=== PATIENT | female | born 1950 | race Caucasian/White ===

== ENCOUNTER 2018-04-23 22:18 | Inpatient (IN) ==
[2018-04-24] MEDS ORDERED: Ketorolac 30 MG/ML VIAL IVP PRN ×2 (00:21→12:46)
[2018-04-24] MEDS ORDERED: OXYCODONE Oral CONC 10 MG/0.5 ML ORAL.SYG SL PRN ×3 (00:21→12:46)
[2018-04-24] MEDS ORDERED: Naloxone 0.4 MG/ML INJ IVP PRN ×2 (00:21→12:46)
--- NOTE | 2018-04-24 00:25 | Internal Med History&Physical ---
Date of Encounter: 04/24/18 Time of Encounter: 00:25 Internal Medicine - H&P: HPI Chief complaint: Abdominal Pain History of present illness: Ms. Gardner is a 67 year old female medical history of diabetes, hypertension, history of cervical cancer status post hysterectomy and hyperlipidemia who initially presented to [facility] to abdominal pain. She has been having right lower quadrant pain for the past 2 days. Pain is described as sharp, 7 out of 10 in intensity and nonradiating. Symptoms gotten progressively worse during that timeframe associated with fever and chills. Patient has noted increased urinary frequency and urine which appears "puslike". Symptoms appear to improve one day prior to current presentation but the pain returned greater intensity today. Patient denies any flank pain, hematuria, nausea, vomiting, diarrhea, chest pain or shortness of breath. Denies any previous history of kidney stones. At [facility] patient was found to be mildly tachycardic with a heart rate of 105, normotensive and a temperature of 102.5. Laboratory findings notable for a leukocytosis of 12.8 and a lactic acid of 1.9. UA was unremarkable. A CT scan of the abdomen showed a 2-5 mm calculi in the right ureter causing moderate hydronephrosis. Dr. Maya with urology was consulted who will place patient on the surgical docket for the following day. Past Med Surg Social Fam HX - Family History Father Living Status: Hx Family Neurologic Disorders: Yes Mother Living Status: Hx Family Cancer: Yes Internal Medicine - H&P: Meds Aspirin [Adult Aspirin] 81 mg DAILY 04/24/18 [History] Bisoprolol/HCTZ 03/05.25 [Ziac ] 1 each PO DAILY 04/24/18 [History] Fluticasone Propionate Nasal [Flonase] 1 spray PRN 04/24/18 [History] Krill/[place]-3/Dha/Epa/Lipids [[place]-3 Krill Oil 500 mg Sfgl] DAILY 04/24/18 [History] Losartan [Cozaar] 100 mg PO DAILY 04/24/18 [History] Mv-Mn/Folic Acid/Vit [id number] [Alive Once Daily Women 50 Plus] 1 DAILY 04/24/18 [History] Pantoprazole Sodium 40 mg PO DAILY 04/24/18 [History] Pravastatin Sodium [Pravachol] 80 mg PO DAILY 04/24/18 [History] cloNIDine HCl [CloNIDine HCl] 0.3 mg PO BID 04/24/18 [History] metFORMIN [Glucophage] 850 mg PO DAILY 04/24/18 [History] Allergy/AdvReac Type Severity Reaction Status Date / Time No Known Allergies Allergy Verified 04/24/18 00:16 All Systems PM: A 10-system review of systems was performed and is negative for pertinent findings except as documented above in the HPI. - Constitutional Constitutional: no chills, no fever(s), no night sweats - EENT Eyes: no change in vision, no discharge, no pain, no photophobia Ears: no ear discharge, no ear pain, no tinnitus Nose, mouth and throat: no dysphagia, no nasal discharge, no neck pain, no sore throat - Cardiovascular Cardiovascular ROS IM: no chest pain, no diaphoresis, no dyspnea, no lightheadedness, no palpitations, no syncope - Respiratory Respiratory: no cough, no dyspnea, no wheezing, no excessive phlegm production - Gastrointestinal Gastrointestinal: no abdominal pain, no diarrhea, no hematemesis, no hematochezia, no melena, no nausea, no vomiting - Genitourinary Genitourinary: no change in urinary stream, no dysuria, no flank pain, no hematuria - Musculoskeletal Musculoskeletal ROS IM: no numbness, no tingling - Integumentary Integumentary IM: no rash, no unusual bruising - Neurological Neurological ROS: no confusion, no convulsions, no focal weakness, no numbness, no tingling, no tremor(s) - Hematologic/Lymphatic Hematologic/Lymphatic: no easy bruising - Constitutional Vitals: Temp Pulse Resp BP Pulse Ox 97.4 F L 90 17 124/79 96 04/24/18 00:11 04/24/18 00:11 04/24/18 00:11 04/24/18 00:11 04/24/18 00:11 Exam: General: Alert and oriented 3 lying in bed in no acute distress Skin:Normal color, no rash, no lesions. HEENT:EOM, pupils equal, round and reactive. Cardiovascular:Normal S1 & S2, no rubs, murmurs or gallops. No JVD. Pulse regular. Lungs:Normal breath sounds, no wheezes or crackles. Abdomen:Soft, non-tender, no rigidity. No CVA tenderness Extremities:No deformity, no edema or tenderness, no joint swelling or clubbing. Neurological:Normal cognition and motor skills. Pulses:Carotid and radial pulses normal +2. Rest of the physical exam is non contributory Internal Med - H&P Results - Labs CBC & Chem 7: 04/24/18 00:39 04/24/18 00:39 - Assessment and plan (1) Nephrolithiasis Current Visit: Yes Status: Acute Assessment and plan: Nephrolithiasis based on CT of the abdomen and pelvis which shows 2-5 mm calculi in the right ureter causing moderate hydronephrosis. Urology on board and plan for intervention tomorrow. -Continue with IV fluids -Pain control -We will give 1 dose of tamsulosin -Keep patient nothing by mouth -Urology consult (2) Sepsis Current Visit: Yes Status: Acute Assessment and plan: Patient met 3 out of 4 SIRS criteria with fever, elevated white blood cell count and tachycardia, urinary tract as her source of infection during initial assessment prior to transfer to [place]. Patient received IV ceftriaxone. Patient found to be afebrile and hemodynamically stable after arrival. Laboratory workup performed here shows normalization of patient's leukocytosis -We will continue antibiotics -Follow-up blood cultures. -Continue IV fluids. Qualifiers: Qualified Code(s): A41.9 - Sepsis, unspecified organism (3) Diabetes Current Visit: Yes Status: Acute Assessment and plan: Blood glucose checks every 6 with sliding scale insulin. Qualifiers: Diabetes mellitus type: type 2 Diabetes mellitus rat exterminator insulin use: without rat exterminator use Diabetes mellitus complication status: with unspecified complications Qualified Code(s): E11.8 - Type 2 diabetes mellitus with unspecified complications (4) Hypertension Current Visit: Yes Status: Acute Assessment and plan: Blood pressure stable. Resume home antihypertensives. Qualifiers: Hypertension type: unspecified Qualified Code(s): I10 - Essential (primary) hypertension (5) DVT prophylaxis Current Visit: Yes Status: Acute Assessment and plan: Subcutaneous heparin. - Time Spent With Patient Total time spent is greater than 50% in coordination of care (as documented) at patient's floor/unit and/or counseling patient:
[2018-04-24] MEDS: D5% in 0.45% NACL 1,000 ML IVC SCH ×2 (00:29→08:07)
[2018-04-24] MEDS ORDERED: *HR* Dextrose 50 % in Water (Syg) 50 ML SYRINGE IVP PRN ×2 (00:45→12:46)
[2018-04-24] MEDS ORDERED: Dextrose Gel 15 GM/37.5 ML TUBE PO PRN ×4 (00:45→12:46)
[2018-04-24] MEDS ORDERED: D5% in Water 1,000 ML IVC PRN ×2 (00:45→12:46)
[2018-04-24 00:51] LABS: Basophils % 0.3 %; Eosinophils % 0.1 %; Hematocrit 36.6 % (35.3-44.9); Hemoglobin 12.4 g/dL (11.5-15.4); Immature Granulocytes % 0.6 % (0-4); Lymphocytes # 1.3 K/mcL (0.6-4.6); Mean Corpuscular HGB Conc 33.9 g/dL (31.6-35.5); Mean Corpuscular Hemoglobin 30.4 pg (28.0-33.3); Mean Corpuscular Volume 89.7 fL (83.0-100.0); Mean Platelet Volume 10.7 fL (9.4-12.4); Monocytes % 9.7 %; Neutrophils # 8.3 K/mcL (1.6-8.9); Platelet Count 162 K/mcL (140-400); Red Blood Count 4.08 M/mcL (3.82-4.97); Red Cell Distribution Width 12.5 % (11.5-14.5); Segmented Neutrophils % 77.3 %
[2018-04-24 01:10] LABS: INR 1.2; Prothrombin Time 13.2 Seconds (9.4-12.1)
[2018-04-24 01:11] LABS: Alanine Aminotransferase 28 Units/L (7-52); Albumin 3.7 g/dL (3.5-5.7); Albumin/Globulin Ratio 1.4 (1.1-2.2); Alkaline Phosphatase 120 Units/L (34-104); Aspartate Amino Transferase 20 Units/L (13-39); BUN/Creatinine Ratio 21 (6-26); Bilirubin,Total 0.7 mg/dL (0.3-1.0); Blood Urea Nitrogen 13 mg/dL (8-23); Calcium 8.5 mg/dL (8.6-10.3); Carbon Dioxide 23 mEq/L (23-29); Chloride 107 mEq/L (98-107); Globulin 2.6 g/dL (2.4-3.5); Glucose 211 mg/dL (70-105); Osmolality,Calculated 294 (280-300); Potassium 3.4 mEq/L (3.5-5.1); Sodium 139 mEq/L (136-145); Total Protein 6.3 g/dL (6.4-8.9); eGFR For Non-African Americans > 60 (> 60)
[2018-04-24] MEDS ORDERED: Insulin LISPRO 300 UNITS/3 ML VIAL SQ SCH ×3 (06:00→18:00)
[2018-04-24] MEDS ORDERED: Potassium Chloride 40 MEQ, Lidocaine 1% 2 ML in D5% in Water 500 ML IVPB ONE (07:31)
--- NOTE | 2018-04-24 07:44 | Urology - Consult Note ---
Date of Encounter: 04/24/18 Time of Encounter: 07:42 - Assessment and Plan (1) Nephrolithiasis Current Visit: Yes Status: Acute Assessment and plan: 67-year-old woman seen in consultation for a right proximal ureteral stone with hydronephrosis and urinary tract infection with sepsis. She has been admitted. She has been afebrile overnight. She is hemodynamically stable. I recommend proceeding with a cystoscopy and right ureteral stent placement. I informed her the risks of the procedure which include but are not limited to bleeding, infection, injury to structures, need for further procedures, stent irritation, and the risk of anesthesia. She is willing to proceed. (2) Sepsis Current Visit: Yes Status: Acute Assessment and plan: Appreciate hospitalist support. Continue IV antibiotic. Await results of cultures. Qualifiers: Qualified Code(s): A41.9 - Sepsis, unspecified organism Urology CN:HPI Consult date: 04/24/18 Reason for consult Urology: Other (Right ureteral stone, uti) History of present illness: 67-year-old woman presented with right flank pain for 3 days. The pain became more severe yesterday. She reports developing a fever. She went to an outside emergency department. The pain was sharp. It radiated to the groin. She described the pain as being intense. At the outside emergency department a CT scan showed evidence of right hydronephrosis secondary to 2 small right proximal ureteral stones. She was given IV antibiotic and transferred to [facility]. Today she feels well. Her pain is improved. There are no fevers overnight. Past Med Surg Social Fam HX - Past Medical History Medical history: cancer, diabetes, hyperlipidemia, hypertension Additional medical history: Hx of ovarian cancer- removed Psychiatric history: no psych history - Past Surgical History Surgical History: hysterectomy - Social History Smoking Status: Never smoker Smokeless Tobacco Status: No Alcohol use: none Drug use: none - Family History Father Living Status: Hx Family Neurologic Disorders: Yes Mother Living Status: Hx Family Cancer: Yes Medications and Allergies Aspirin [Adult Aspirin] 81 mg DAILY 04/24/18 [History] Bisoprolol/HCTZ 03/05.25 [Ziac 03/05.25] 1 each PO DAILY 04/24/18 [History] Fluticasone Propionate Nasal [Flonase] 1 spray PRN 04/24/18 [History] Krill/[place]-3/Dha/Epa/Lipids [[place]-3 Krill Oil 500 mg Sfgl] DAILY 04/24/18 [History] Losartan [Cozaar] 100 mg PO DAILY 04/24/18 [History] Mv-Mn/Folic Acid/Vit [id number] [Alive Once Daily Women 50 Plus] 1 DAILY 04/24/18 [History] Pantoprazole Sodium 40 mg PO DAILY 04/24/18 [History] Pravastatin Sodium [Pravachol] 80 mg PO DAILY 04/24/18 [History] cloNIDine HCl [CloNIDine HCl] 0.3 mg PO BID 04/24/18 [History] metFORMIN [Glucophage] 850 mg PO DAILY 04/24/18 [History] Allergy/AdvReac Type Severity Reaction Status Date / Time No Known Allergies Allergy Verified 04/24/18 00:16 Review of Systems - Constitutional fever(s), no chills - EENT Nose, mouth and throat: no dizziness - Cardiovascular no chest pain - Respiratory no dyspnea - Gastrointestinal nausea, no vomiting - Genitourinary Genitourinary: flank pain, no hematuria - Musculoskeletal no back pain - Integumentary no erythema, no rash - Neurological no weakness - Psychiatric no suicidal ideation - Hematologic/Lymphatic no easy bleeding - Allergic/Immunologic no wheezing Exam Initial Vital Signs Temp Pulse Resp BP Pulse Ox 97.4 F L 90 17 124/79 96 04/24/18 00:11 04/24/18 00:11 04/24/18 00:11 04/24/18 00:11 04/24/18 00:11 - General physical appearance Present: well developed, well nourished, no distress - Eyes Absent: icteric - ENT Present: normal nares - Neck Present: trachea midline - Respiratory Present: normal respiratory effort - Cardiovascular Cardiovascular exam IM: RRR - Abdomen Abdomen: Present: soft - Integumentary Present: no rash - Neurologic Present: normal coordination - Musculoskeletal Present: other (Grossly normal) Urology Results - Labs 04/24/18 00:39 04/24/18 00:39 Abnormal lab results PT 13.2 Seconds (9.4-12.1) H 04/24/18 00:39 Potassium 3.4 mEq/L (3.5-5.1) L 04/24/18 00:39 Glucose 211 mg/dL (70-105) H 04/24/18 00:39 Calcium 8.5 mg/dL (8.6-10.3) L 04/24/18 00:39 Alkaline Phosphatase 120 Units/L (34-104) H 04/24/18 00:39 Serum Total Protein 6.3 g/dL (6.4-8.9) L 04/24/18 00:39 Diabetes panel 04/24/18 Range/Units 00:39 Sodium 139 (136-145) mEq/L Potassium 3.4 L (3.5-5.1) mEq/L Chloride 107 (98-107) mEq/L Carbon Dioxide 23 (23-29) mEq/L BUN 13 (8-23) mg/dL Creatinine 0.62 (0.60-1.20) mg/dL Glucose 211 H (70-105) mg/dL Calcium 8.5 L (8.6-10.3) mg/dL AST 20 (13-39) Units/L ALT 28 (7-52) Units/L Alkaline Phosphatase 120 H (34-104) Units/L Albumin 3.7 (3.5-5.7) g/dL Calcium panel 04/24/18 Range/Units 00:39 Calcium 8.5 L (8.6-10.3) mg/dL Albumin 3.7 (3.5-5.7) g/dL Pituitary panel 04/24/18 Range/Units 00:39 Sodium 139 (136-145) mEq/L Potassium 3.4 L (3.5-5.1) mEq/L Chloride 107 (98-107) mEq/L Carbon Dioxide 23 (23-29) mEq/L BUN 13 (8-23) mg/dL Creatinine 0.62 (0.60-1.20) mg/dL Glucose 211 H (70-105) mg/dL Calcium 8.5 L (8.6-10.3) mg/dL Adrenal panel 04/24/18 Range/Units 00:39 Sodium 139 (136-145) mEq/L Potassium 3.4 L (3.5-5.1) mEq/L Chloride 107 (98-107) mEq/L Carbon Dioxide 23 (23-29) mEq/L BUN 13 (8-23) mg/dL Creatinine 0.62 (0.60-1.20) mg/dL Glucose 211 H (70-105) mg/dL Calcium 8.5 L (8.6-10.3) mg/dL Total Bilirubin 0.7 (0.3-1.0) mg/dL AST 20 (13-39) Units/L ALT 28 (7-52) Units/L Alkaline Phosphatase 120 H (34-104) Units/L Albumin 3.7 (3.5-5.7) g/dL All other labs normal. - Imaging CT scan - abdomen: report reviewed, image reviewed CT scan - pelvis: report reviewed, image reviewed
[2018-04-24] MEDS: Bisoprolol/HCTZ 10/6.25 TABLET PO SCH ×2 (08:00→09:02)
[2018-04-24] MEDS ORDERED: *HR* Heparin 5,000 UNIT/ML VIAL SQ SCH (08:00)
[2018-04-24] MEDS ORDERED: Bisoprolol/HCTZ 10/6.25 TABLET PO SCH (09:00)
[2018-04-24] MEDS ORDERED: cefTRIAXone 1,000 MG in Water for inj. (sterile) 20 ML 10 ML IVPB SCH (09:00)
--- NOTE | 2018-04-24 09:03 | Anesthesia Evaluation PreOp ---
Date of Encounter: 04/24/18 Time of Encounter: 11:09 - Past History Planned Operation: cystoscopy, right ureteroscopy with stent insertion Cardiac History: HTN, Hyperlipidemia Pulmonary History: Denies Any Significant HX ADVERTISING WRITER History: Denies Any Significant HX Other Medical History: Renal (right ureteral stone with right-sided hydronephrosis), Diabetes Type II (oral medications only), GERD, Other (hx cervical cancer s/p hysterectomy; acute urosepsis) Anesthesia History: No Prior Anesthetic Complications, Past Anesthesia (hysterectomy, surgery for varicose veins) Alcohol Use: none Drug use: none Medications and Allergies Aspirin [Adult Aspirin] 81 mg DAILY 04/24/18 [History] Bisoprolol/HCTZ 03/05.25 [Ziac ] 1 each PO DAILY 04/24/18 [History] Fluticasone Propionate Nasal [Flonase] 1 spray PRN 04/24/18 [History] Krill/[place]-3/Dha/Epa/Lipids [[place]-3 Krill Oil 500 mg Sfgl] DAILY 04/24/18 [History] Losartan [Cozaar] 100 mg PO DAILY 04/24/18 [History] Mv-Mn/Folic Acid/Vit [id number] [Alive Once Daily Women 50 Plus] 1 DAILY 04/24/18 [History] Pantoprazole Sodium 40 mg PO DAILY 04/24/18 [History] Pravastatin Sodium [Pravachol] 80 mg PO DAILY 04/24/18 [History] cloNIDine HCl [CloNIDine HCl] 0.3 mg PO BID 04/24/18 [History] metFORMIN [Glucophage] 850 mg PO DAILY 04/24/18 [History] Allergy/AdvReac Type Severity Reaction Status Date / Time No Known Allergies Allergy Verified 04/24/18 00:16 - Meds/Allergy Pre-op Review Medications Reviewed: Yes Allergies Reviewed: Yes Beta Blockers on Current Med List: Yes (bisoprolol) If Beta Blockers taken, Date/Time (Last Dose taken): 04-24-18 bisprolol 8 am Anesthesia Results - Labs 04/24/18 00:39 04/24/18 00:39 Anesthesia Exam Last Vital Signs Temp 98.9 F 04/24/18 05:22 Pulse 94 04/24/18 05:22 Resp 15 04/24/18 05:22 BP 135/85 11/25/18 05:22 Pulse Ox 94 04/24/18 05:22 Weight: 101 kg - HEENT Pupil (Motor): Pupils equal, EOMI Mallampati: III Teeth: Normal Oral Opening: Greater than 3 - ADVERTISING WRITER LOC: Oriented ADVERTISING WRITER Motor: Normal RUE, Normal LUE, Normal RLE, Normal LLE, Normal Face - Cardiac Rhythm: Regular Murmur: None - Pulmonary Breath Sounds: bilateral Clear Respiratory Effort: Symmetrical Anesthesia Assess/Plan ASA Score: 3 Level of consciousness: Cooperative Anesthetic Plan: General Monitoring Plan: Standard Monitors Recovery Plan: PACU
--- NOTE | 2018-04-24 09:19 | Internal Med Progress Note ---
<Cam Tracey S - Last Filed: 04/24/18 11:21> Hospitalist Progress Note - Encounter Date of Encounter: 04/24/18 Time of Encounter: 09:14 - Subjective Interval History: Ms Gardner is a 67yo female with PMH HDL, HTN, T2DM, hx of cervical cancer who is a [facility] transfer that presented early this morning with the cc of abdominal pa in. She states that she has had it since mostly in the right side with radiation to her back. It was a sharp, achy pain that was a 8/10 at the worst. She states bending forward made it worse and had a hard time getting comfortable. She had some fever and chills assoc with the pain. Her urine was pussy and had increase in frequency of urination. She denies any episodes of emesis but was somewhat nauseated. Denies this ever happening to her before. The pt was evaluated at [facility] and found to have a HR 105, t of 102.5, WBC 12.8 and lactic acid 1.9, UA negative. CT abdomen and pelvis showed a calculi in the right ureter causing hydronephrosis. Spoke with pt at bedside this morning. She states her pain is better with pain meds. She states she is aware she is going for stenting this morning as per urology. Denies any acute complaint or concern. No active chest pain, SOB. - Exam Vitals: Temp Pulse Resp BP Pulse Ox 98.9 F 94 15 135/85 94 04/24/18 05:22 04/24/18 05:22 04/24/18 05:22 04/24/18 05:22 04/24/18 05:22 Exam: General: Alert and oriented 3 lying in bed in no acute distress Skin: Normal color, no rash, no lesions. Intact HEENT: normocephalic atraumatic, moist mucus membranes Cardiovascular:Normal S1 & S2, no rubs, murmurs or gallops. No JVD. Pulse regular. Lungs: Normal breath sounds, no wheezes or crackles. Abdomen:Soft, non-tender, no rigidity. No CVA tenderness, no rebound or guarding, obese Extremities: No deformity, no edema or tenderness, no joint swelling or clubbing. Neurological:No FND, CN2-12 grossly intact Psych : appropriate mood and affect - Assessment and Plan (1) Nephrolithiasis Current Visit: Yes Status: Acute Assessment and Plan: Three day hx of abd pain, RLQ/side, radiation to the back - no prior hx of kidney stone CT abdomen and pelvis at [facility] - 2-5mm calculi in the right ureter causing moderate hydronephrosis Pt met SIRS criteria for fever, WBC count and tacycardia at [facility] - since coming to [facility], pt has been afebrile and hemodynamically stable HR 94, BP stable, RR 15, WBC count normal Plan: - pt to go to OR with Dr. Maya this morning - currently NPO - pain control - tamsulosin given overnight - 150cc/hr D5 in 1/2 normal saline - ceftriaxone day 1 - blood cx pending, urine cx pending - dispo: cultures pending, remain afebrile (2) Obesity Current Visit: Yes Status: Acute Assessment and Plan: BMI 36.8 - lose weight (3) Allergic rhinitis Current Visit: Yes Status: Chronic Assessment and Plan: on flonase (4) Hyperlipidemia Current Visit: No Status: Chronic Assessment and Plan: on pravastatin - po meds held (5) GERD (gastroesophageal reflux disease) Current Visit: No Status: Chronic Assessment and Plan: on pantoprazole (6) Sepsis Current Visit: Yes Status: Resolved Assessment and Plan: See plan as per above (7) Diabetes Current Visit: No Status: Chronic Assessment and Plan: Glucose 211 - low dose sliding scale (8) Hypertension Current Visit: No Status: Chronic Assessment and Plan: On Cozaar - PO meds held - bp 135/85 (9) DVT prophylaxis Current Visit: Yes Status: Acute Assessment and Plan: sq heparin (10) Hypokalemia Current Visit: Yes Status: Acute Assessment and Plan: Potassium 3.4 - replaced - montior bmp - likely due to poor PO intake - Time Spent with Patient Total time spent is greater than 50% in coordination of care (as documented) at patient's floor/unit and/or counseling patient: Internal Medicine: Result - Labs CBC & Chem 7: 04/24/18 00:39 04/24/18 00:39 Labs: Short CBC 04/24/18 Range/Units 00:39 WBC 10.7 (4.3-11.1) K/mcL Hgb 12.4 (11.5-15.4) g/dL Hct 36.6 (35.3-44.9) % Plt Count 162 (140-400) K/mcL Neutrophils # 8.3 (1.6-8.9) K/mcL BMP 04/24/18 00:39 Sodium 139 Potassium 3.4 L Chloride 107 Carbon Dioxide 23 BUN 13 Creatinine 0.62 Glucose 211 H Calcium 8.5 L Liver Function 04/24/18 Range/Units 00:39 Total Bilirubin 0.7 (0.3-1.0) mg/dL AST 20 (13-39) Units/L ALT 28 (7-52) Units/L Alkaline Phosphatase 120 H (34-104) Units/L Albumin 3.7 (3.5-5.7) g/dL - ABG Interpretation ABG results: PT/INR, D-dimer PT 13.2 Seconds (9.4-12.1) H 04/24/18 00:39 Consult Discharge Plan - Plan Referrals: Bebo Aquino DO [Primary Care Provider] - <Laureano Whelan - Last Filed: 04/24/18 16:59> Hospitalist Progress Note - Encounter Date of Encounter: 04/24/18 - Exam Vitals: Temp Pulse Resp BP Pulse Ox 102.3 F H 89 20 127/69 93 04/24/18 12:28 04/24/18 12:28 04/24/18 12:28 04/24/18 12:28 04/24/18 12:28 - Assessment and Plan (1) Nephrolithiasis Current Visit: Yes Status: Acute (2) Sepsis Current Visit: Yes Status: Resolved (3) Diabetes Current Visit: No Status: Chronic (4) Hypertension Current Visit: No Status: Chronic (5) DVT prophylaxis Current Visit: Yes Status: Acute - Time Spent with Patient Total time spent is greater than 50% in coordination of care (as documented) at patient's floor/unit and/or counseling patient: Internal Medicine: Result - Labs CBC & Chem 7: 04/24/18 00:39 04/24/18 00:39 Labs: Short CBC 04/24/18 Range/Units 00:39 WBC 10.7 (4.3-11.1) K/mcL Hgb 12.4 (11.5-15.4) g/dL Hct 36.6 (35.3-44.9) % Plt Count 162 (140-400) K/mcL Neutrophils # 8.3 (1.6-8.9) K/mcL BMP 04/24/18 00:39 Sodium 139 Potassium 3.4 L Chloride 107 Carbon Dioxide 23 BUN 13 Creatinine 0.62 Glucose 211 H Calcium 8.5 L Liver Function 04/24/18 Range/Units 00:39 Total Bilirubin 0.7 (0.3-1.0) mg/dL AST 20 (13-39) Units/L ALT 28 (7-52) Units/L Alkaline Phosphatase 120 H (34-104) Units/L Albumin 3.7 (3.5-5.7) g/dL - ABG Interpretation ABG results: PT/INR, D-dimer PT 13.2 Seconds (9.4-12.1) H 04/24/18 00:39 - Impressions Impressions Fluoroscopy 04/24/18 00:00 IMPRESSION: Digital intra procedural images show inguinal a right ureteral stent in place. See procedure note for further details. D/ / Aishwarya Bermudez Cha, MD / Aishwarya Bermudez Cha, MD Interpreting Provider: Aishwarya Bermudez Cha, MD - Attending Attestation I have examined this patient and my medical decision-making was reviewed with the Resident Physician. I agree with the documented findings, disposition and treatment plan as described except to the extent set forth below. <Cam Tracey S - Last Filed: 04/24/18 11:21> (2) Obesity Qualifiers: Obesity type: due to excess calories Obesity classification: adult class 2 (BMI 35 - 39.9) Serious obesity comorbidity presence: unspecified whether serious comorbidity present Body mass index: BMI 36.0-36.9 Qualified Code(s): E66.09 - Other obesity due to excess calories; Z68.36 - Body mass index (BMI) 36.0-36.9, adult (3) Allergic rhinitis Qualifiers: Allergic rhinitis trigger: unspecified Allergic rhinitis seasonality: unspecified Qualified Code(s): J30.9 - Allergic rhinitis, unspecified (4) Hyperlipidemia Qualifiers: Hyperlipidemia type: unspecified Qualified Code(s): E78.5 - Hyperlipidemia, unspecified (5) GERD (gastroesophageal reflux disease) Qualifiers: Esophagitis presence: esophagitis presence not specified Qualified Code(s): K21.9 - Gastro-esophageal reflux disease without esophagitis (6) Sepsis Qualifiers: Qualified Code(s): A41.9 - Sepsis, unspecified organism (7) Diabetes Qualifiers: Diabetes mellitus type: type 2 Diabetes mellitus [facility] insulin use: without manager terminal use Diabetes mellitus complication status: with unspecified complications Qualified Code(s): E11.8 - Type 2 diabetes mellitus with unspecified complications (8) Hypertension Qualifiers: Hypertension type: unspecified Qualified Code(s): I10 - Essential (primary) hypertension <Laureano Whelan - Last Filed: 04/24/18 16:59> (2) Sepsis Qualifiers: Qualified Code(s): A41.9 - Sepsis, unspecified organism (3) Diabetes Qualifiers: Diabetes mellitus type: type 2 Diabetes mellitus [facility] insulin use: without manager terminal use Diabetes mellitus complication status: with unspecified complications Qualified Code(s): E11.8 - Type 2 diabetes mellitus with unspecified complications (4) Hypertension Qualifiers: Hypertension type: unspecified Qualified Code(s): I10 - Essential (primary) hypertension
[2018-04-24] MEDS ORDERED: *HR* FentaNYL (PF) 100 MCG/2 ML VIAL ONE (11:12)
[2018-04-24] MEDS ORDERED: *HR* Propofol 200 MG/20 ML VIAL IVP ONE (11:12)
[2018-04-24] MEDS ORDERED: Lidocaine -MPF 2% 2 ML VIAL ONE (11:13)
[2018-04-24] MEDS ORDERED: *HR* Succinylcholine 200 MG/10 ML VIAL IVP ONE (11:15)
[2018-04-24] MEDS ORDERED: Lidocaine -MPF 4% 5 ML AMPUL ONE (11:15)
[2018-04-24] MEDS ORDERED: *HR* HYDROmorphone (PF) 1 MG/ML SYRINGE IVP PRN (11:21)
[2018-04-24] MEDS ORDERED: *HR* OxyCODONE/APAP 5/325 TABLET PO PRN (11:21)
[2018-04-24] MEDS ORDERED: *HR* Promethazine 25 MG/ML VIAL IVP PRN (11:21)
[2018-04-24] MEDS ORDERED: *HR* Labetalol 20 MG/4 ML SYRINGE IVP PRN (11:21)
[2018-04-24] MEDS ORDERED: Dexamethasone 4 MG/ML VIAL ONE (11:36)
[2018-04-24] MEDS ORDERED: Ondansetron 4 MG/2 ML VIAL ONE (11:36)
[2018-04-24] MEDS ORDERED: Ketorolac 30 MG/ML VIAL ONE (11:37)
--- NOTE | 2018-04-24 11:55 | Operative Note ---
Date of procedure: 04/24/18 Pre-op diagnosis: Right ureteral stone, urinary tract infection Post-op diagnosis: same Procedure: Cystoscopy and right ureteral stent placement Implants: 6-Serbian by 24 cm double-J stent Complications: None Anesthesia: GETA Surgeon: Arnulfo Maya Was there an student assistant present: No Estimated blood loss (cc): 0 Specimen: Urine culture from right kidney Condition: stable Disposition: PACU Procedure in Detail: tIndications: Aarti is a 67-year-old woman who has a history of nephrolithiasis. She had a CT which showed right proximal ureteral stones and she has concern for a urinary tract infection. She elected to undergo a cystoscopy and right ureteral stent placement. She was aware of the risks of the procedure including but not limited to bleeding, infection, injury to other structures, need for further procedures, stent irritation, need for nephrostomy tube, need for open repair, risks otherwise unforeseen, and the risk of anesthesia. She is willing to proceed. Procedure in Detail: After informed consent was obtained the patient was brought back to the operating room and placed in supine position. A time out was performed. General anesthesia was administered and an endotracheal tube was placed. She was then placed in the lithotomy position. She was prepped and draped in the usual sterile fashion. Cystoscopy was performed. The anterior urethra was normal. There was no evidence of bladder tumors. The ureteral orifices were in the normal orthotopic position. There was no duplication of the ureteral orifices. The sensor wire was placed in the right ureteral orifice and brought into the kidney. The open-ended catheter was placed over the wire into the kidney. The wire was removed. An aspirate of urine was obtained for culture. The wire was replaced and the open ended catheter was removed. A 6 Serbian by 24cm JJ stent was then placed. The dangle strings were removed. The patient was then awakened from general anesthesia and brought to recovery room in good condition. All sponge, needle, and instrument counts were correct.
--- NOTE | 2018-04-24 12:37 | Anesthesia Evaluation Post Op ---
Date of Encounter: 04/24/18 Time of Encounter: 12:34 - Vital Signs Vital Signs: Last Vital Signs Temp 102.3 F H 04/24/18 12:28 Pulse 89 04/24/18 12:28 Resp 20 04/24/18 12:28 BP 127/69 04/24/18 12:28 Pulse Ox 93 04/24/18 12:28 - Lungs Lungs: Clear Ascult./Percussion - Airway Airway: Non-obstructed - Cardiovascular Regular Rate - Mental Status Mental Status: Alert & Oriented, Answers Appropriately - Pain Pain Scale: 1 - Nausea Vomiting Nausea Vomiting: Not Present - Hydration Hydration: NPO - Discharge PostOp Status: Transfer Patient to floor
[2018-04-24] MEDS ORDERED: D5% in 0.45% NACL 1,000 ML IVC SCH (12:46)
[2018-04-24] MEDS: *HR* Heparin 5,000 UNIT/ML VIAL SQ SCH ×2 (17:31→23:48)
[2018-04-24] MEDS: Insulin LISPRO 300 UNITS/3 ML VIAL SQ SCH ×2 (17:34→20:43)
[2018-04-24] MEDS: 0.9 % Sodium Chloride 1,000 ML IVC SCH ×2 (17:39→23:46)
[2018-04-24] MEDS: OXYCODONE Oral CONC 10 MG/0.5 ML ORAL.SYG SL PRN (23:47)
[2018-04-25 05:33] LABS: Basophils % 0.1 %; Hematocrit 33.8 % (35.3-44.9); Hemoglobin 11.4 g/dL (11.5-15.4); Immature Granulocytes % 0.3 % (0-4); Lymphocytes # 1.3 K/mcL (0.6-4.6); Lymphocytes % 13.4 %; Mean Corpuscular HGB Conc 33.7 g/dL (31.6-35.5); Mean Corpuscular Volume 88.9 fL (83.0-100.0); Mean Platelet Volume 10.7 fL (9.4-12.4); Monocytes % 10.1 %; Neutrophils # 7.4 K/mcL (1.6-8.9); Platelet Count 178 K/mcL (140-400); Red Cell Distribution Width 12.4 % (11.5-14.5); Segmented Neutrophils % 76.1 %
[2018-04-25 05:50] LABS: BUN/Creatinine Ratio 30 (6-26); Blood Urea Nitrogen 18 mg/dL (8-23); Calcium 9.1 mg/dL (8.6-10.3); Carbon Dioxide 23 mEq/L (23-29); Chloride 111 mEq/L (98-107); Glucose 207 mg/dL (70-105); Osmolality,Calculated 298 (280-300); Potassium 3.7 mEq/L (3.5-5.1); Sodium 140 mEq/L (136-145); eGFR For Non-African Americans > 60 (> 60)
[2018-04-25] MEDS: 0.9 % Sodium Chloride 1,000 ML IVC SCH ×3 (06:29→20:11)
--- NOTE | 2018-04-25 08:05 | Internal Med Progress Note ---
Hospitalist Progress Note - Encounter Date of Encounter: 04/25/18 - Exam Vitals: Temp Pulse Resp BP Pulse Ox 97.8 F 83 15 144/85 94 04/25/18 04:10 04/25/18 04:10 04/25/18 04:10 04/25/18 04:10 04/25/18 04:10 - Assessment and Plan (1) Nephrolithiasis Current Visit: Yes Status: Acute (2) Sepsis Current Visit: Yes Status: Resolved (3) Diabetes Current Visit: No Status: Chronic (4) Hypertension Current Visit: No Status: Chronic (5) DVT prophylaxis Current Visit: Yes Status: Acute - Time Spent with Patient Total time spent is greater than 50% in coordination of care (as documented) at patient's floor/unit and/or counseling patient: Internal Medicine: Result - Labs CBC & Chem 7: 04/25/18 05:19 04/25/18 05:19 Labs: Short CBC 04/25/18 Range/Units 05:19 WBC 9.7 (4.3-11.1) K/mcL Hgb 11.4 L (11.5-15.4) g/dL Hct 33.8 L (35.3-44.9) % Plt Count 178 (140-400) K/mcL Neutrophils # 7.4 (1.6-8.9) K/mcL BMP 04/25/18 05:19 Sodium 140 Potassium 3.7 Chloride 111 H Carbon Dioxide 23 BUN 18 Creatinine 0.60 Glucose 207 H Calcium 9.1 - ABG Interpretation ABG results: PT/INR, D-dimer PT 13.2 Seconds (9.4-12.1) H 04/24/18 00:39 - Impressions Impressions Fluoroscopy 04/24/18 00:00 IMPRESSION: Digital intra procedural images show inguinal a right ureteral stent in place. See procedure note for further details. D/ / Aishwarya Bermudez Cha, MD / Aishwarya Bermudez Cha, MD Interpreting Provider: Aishwarya Bermudez Cha, MD Consult Discharge Plan - Plan Referrals: Bebo Aquino DO [Primary Care Provider] - (2) Sepsis Qualifiers: Qualified Code(s): A41.9 - Sepsis, unspecified organism (3) Diabetes Qualifiers: Diabetes mellitus type: type 2 Diabetes mellitus intermodal dispatcher insulin use: without intermodal dispatcher use Diabetes mellitus complication status: with unspecified complications Qualified Code(s): E11.8 - Type 2 diabetes mellitus with unspecified complications (4) Hypertension Qualifiers: Hypertension type: unspecified Qualified Code(s): I10 - Essential (primary) hypertension
[2018-04-25] MEDS: Bisoprolol/HCTZ 10/6.25 TABLET PO SCH (08:22)
[2018-04-25] MEDS: *HR* Heparin 5,000 UNIT/ML VIAL SQ SCH ×2 (08:22→17:11)
[2018-04-25] MEDS: cefTRIAXone 1,000 MG in Water for inj. (sterile) 20 ML 10 ML IVPB SCH (08:22)
[2018-04-25] MEDS: Insulin LISPRO 300 UNITS/3 ML VIAL SQ SCH ×4 (08:32→21:29)
--- NOTE | 2018-04-25 08:49 | Internal Med Progress Note ---
<Arnulfo Rice - Last Filed: 04/25/18 13:34> Hospitalist Progress Note - Encounter Date of Encounter: 04/25/18 Time of Encounter: 09:30 - Subjective Interval History: Ms. Gardner is a 67 year old female medical history of diabetes, hypertension, history of cervical cancer status post hysterectomy and hyperlipidemia who initially presented to [facility] to abdominal pain. She has been having right lower quadrant pain for the past 2 days. Symptoms gotten progressively worse during that timeframe associated with fever and chills. Patient has noted increased urinary frequency and urine which appears "puslike". At [facility] Pateint was suspected to be septic and started on IV ceftriaxone. A CT scan of the abdomen showed a 2-5 mm calculi in the right ureter causing moderate hydronephrosis. She was transferred here where Dr. Maya of Urology was consulted and placed a right ureteral stent (04/24/18). Ceftriaxone is being continued for possible sepsis, blood cultures pending. Overnight patient reports urinating multiple times with varying amounts of urine expulsion. She has had some mild pelvic pressure that persists into this morning. Today the patient reports urinating 3-4 times with mild dysuria and he maturia. She does not believe that she has passed the stone to this point. Pt denies flank pain, increased urinary ugency, or fever/chills. Pt says that compared to the past few days she is feeling significantly better. - Exam Vitals: Temp Pulse Resp BP Pulse Ox 97.8 F 83 15 144/85 94 04/25/18 04:10 04/25/18 04:10 04/25/18 04:10 04/25/18 04:10 04/25/18 04:10 Exam: General: Alert and oriented 3, with good appetite lying in bed in no acute distress Skin: Normal color, no rash, no lesions. Intact HEENT: normocephalic atraumatic, moist mucus membranes Cardiovascular:Normal S1 & S2, no rubs, murmurs or gallops. No JVD. Pulse regular. Lungs: Normal breath sounds, no wheezes, rhonchi, or crackles. Abdomen:Soft, non-tender, no rigidity, BS x4. No CVA tenderness, no rebound or guarding, obese. Denies BM during her stay Extremities: No deformity, no edema or tenderness, no joint swelling or clubbing, peripheral pulses equal bilaterally. Neurological:No FND, CN2-12 grossly intact Psych : appropriate mood and affect - Assessment and Plan (1) Nephrolithiasis Current Visit: Yes Status: Acute Assessment and Plan: Three day hx of abd pain, RLQ/side, radiation to the back - no prior hx of kidney stone CT abdomen and pelvis at [facility] [place] - 2-5mm calculi in the right ureter causing moderate hydronephrosis Pt s/p cystoscopy and right ureteral stent placement with Dr. Maya (04/24) Plan: - Continue 150cc/hr D5 in 1/2 normal saline -Pain control PRN -Continue to monitor for passage of stone - Consider discharge with out patient follow up per urology following blood culture results -urology suggests 7-10 days of oral antibiotic post discharge (2) Sepsis Current Visit: Yes Status: Resolved Assessment and Plan: Pt met SIRS criteria for fever, WBC count and tacycardia at [facility] [place] - since coming to [facility], pt has been afebrile and hemodynamically stable HR 94, BP stable, RR 15, WBC count normal Patient on day 2 ceftriaxone Urine culture Collected 04/24 -reveals mixed organisms resembling possible skin contaminants Blood cultures collected 04/24 -pending Plan: -continue ceftiaxone -Consider discharge with out patient urology follow up pending blood cultures -Urology suggests 7-10 day course of oral antibiotics post discharge (3) Hypertension Current Visit: No Status: Chronic Assessment and Plan: On Bisoprolol/HCTZ () 1 P QD -BP 144/85 -Continue to monitor (4) Diabetes Current Visit: No Status: Chronic Assessment and Plan: Glucose 207 -on low dose sliding scale (5) GERD (gastroesophageal reflux disease) Current Visit: No Status: Chronic Assessment and Plan: On Omeprazole -Hx of hiatal hernia -controlled (6) DVT prophylaxis Current Visit: Yes Status: Acute Assessment and Plan: On SQ heparin - Time Spent with Patient Total time spent is greater than 50% in coordination of care (as documented) at patient's floor/unit and/or counseling patient: less than 15 minutes Plan of Care Discussed with: patient Internal Medicine: Result - Labs CBC & Chem 7: 04/25/18 05:19 04/25/18 05:19 Labs: Short CBC 04/25/18 Range/Units 05:19 WBC 9.7 (4.3-11.1) K/mcL Hgb 11.4 L (11.5-15.4) g/dL Hct 33.8 L (35.3-44.9) % Plt Count 178 (140-400) K/mcL Neutrophils # 7.4 (1.6-8.9) K/mcL BMP 04/25/18 05:19 Sodium 140 Potassium 3.7 Chloride 111 H Carbon Dioxide 23 BUN 18 Creatinine 0.60 Glucose 207 H Calcium 9.1 - ABG Interpretation ABG results: PT/INR, D-dimer PT 13.2 Seconds (9.4-12.1) H 04/24/18 00:39 - Impressions Impressions Fluoroscopy 04/24/18 00:00 IMPRESSION: Digital intra procedural images show inguinal a right ureteral stent in place. See procedure note for further details. D/ / Aishwarya Bermudez Cha, MD / Aishwarya Bermudez Cha, MD Interpreting Provider: Aishwarya Bemrudez Cha, MD Consult Discharge Plan - Plan Referrals: Bebo Aquino DO [Primary Care Provider] - <Laureano Whelan - Last Filed: 04/25/18 23:33> Hospitalist Progress Note - Encounter Date of Encounter: 04/25/18 - Exam Vitals: Temp Pulse Resp BP Pulse Ox 97.8 F 79 14 166/93 98 04/25/18 19:51 04/25/18 19:51 04/25/18 19:51 04/25/18 19:51 04/25/18 19:51 - Assessment and Plan (1) Nephrolithiasis Current Visit: Yes Status: Acute (2) Sepsis Current Visit: Yes Status: Resolved (3) Diabetes Current Visit: No Status: Chronic (4) Hypertension Current Visit: No Status: Chronic (5) DVT prophylaxis Current Visit: Yes Status: Acute - Time Spent with Patient Total time spent is greater than 50% in coordination of care (as documented) at patient's floor/unit and/or counseling patient: Internal Medicine: Result - Labs CBC & Chem 7: 04/25/18 05:19 04/25/18 05:19 Labs: Short CBC 04/25/18 Range/Units 05:19 WBC 9.7 (4.3-11.1) K/mcL Hgb 11.4 L (11.5-15.4) g/dL Hct 33.8 L (35.3-44.9) % Plt Count 178 (140-400) K/mcL Neutrophils # 7.4 (1.6-8.9) K/mcL BMP 04/25/18 05:19 Sodium 140 Potassium 3.7 Chloride 111 H Carbon Dioxide 23 BUN 18 Creatinine 0.60 Glucose 207 H Calcium 9.1 - ABG Interpretation ABG results: PT/INR, D-dimer PT 13.2 Seconds (9.4-12.1) H 04/24/18 00:39 - Attending Attestation I have examined this patient and my medical decision-making was reviewed with the Resident Physician. I agree with the documented findings, disposition and treatment plan as described except to the extent set forth below. Patient feeling much better today. On exam she is in no acute distress, skin warm dry, cvs: RRR, lungs:CTAB, abdomen: minimal TTP in flank. VS: Reviewed, labs: reviewed. Urine cultures: pending, blood cultures: no growth to date. Continue Rocephin, stable, likely can DC tomorrow. Follow-up urine culture sensitivities. <Arnulfo Rice - Last Filed: 04/25/18 13:34> (2) Sepsis Qualifiers: Qualified Code(s): A41.9 - Sepsis, unspecified organism (3) Hypertension Qualifiers: Hypertension type: unspecified Qualified Code(s): I10 - Essential (primary) hypertension (4) Diabetes Qualifiers: Diabetes mellitus type: type 2 Diabetes mellitus skilled nursing insulin use: without terminal system operator use Diabetes mellitus complication status: with unspecified complications Qualified Code(s): E11.8 - Type 2 diabetes mellitus with unspecified complications (5) GERD (gastroesophageal reflux disease) Qualifiers: Esophagitis presence: esophagitis presence not specified Qualified Code(s): K21.9 - Gastro-esophageal reflux disease without esophagitis <Laureano Whelan - Last Filed: 04/25/18 23:33> (2) Sepsis Qualifiers: Qualified Code(s): A41.9 - Sepsis, unspecified organism (3) Diabetes Qualifiers: Diabetes mellitus type: type 2 Diabetes mellitus terminal system operator insulin use: without terminal system operator use Diabetes mellitus complication status: with unspecified complications Qualified Code(s): E11.8 - Type 2 diabetes mellitus with unspecified complications (4) Hypertension Qualifiers: Hypertension type: unspecified Qualified Code(s): I10 - Essential (primary) hypertension
--- NOTE | 2018-04-25 09:13 | Urology Progress Note ---
Addendum entered and electronically signed by Arnulfo Maya MD 04/25/18 12:20: The patient was seen and examined with the physician's bilingual sales assistant. I agree with the assessment and plan. She had a fever after the procedure. We will continue on IV antibiotic. We will need to await the results of cultures from [facility]. I did send a culture from the right kidney. Continue inpatient stay and tell afebrile. Original Note: Date of Encounter: 04/25/18 Time of Encounter: 08:30 - Assessment and Plan (1) Nephrolithiasis Current Visit: Yes Status: Acute Assessment and plan: Patient is a 67-year-old female who presents with a right proximal ureteral stone, urinary tract infection and sepsis. Patient is one day status post cystoscopy and right ureteral stent placement. Patient spiked a temperature to 102.4 postoperatively but has remained afebrile overnight. Patient has been robby alli on IV Rocephin, and white blood cell count is reassuring. Discussed postoperative ureteral stent expectations with patient. Patient is aware she will require an additional procedure for definitive stone extraction. We will await final cultures; renal aspirate shows mixed viktor. Recommend an additional 7-10 days of oral antibiotics after discharge. (2) Sepsis Current Visit: Yes Status: Resolved Qualifiers: Qualified Code(s): A41.9 - Sepsis, unspecified organism Progress Note Narrative: POD #1. Patient seen and examined sitting upright in bed eating breakfast in no apparent distress. Patient is tolerating normal diet without nausea or vomitin g. Patient is voiding without difficulty. Patient admits to some stent discomfort with dysuria, bladder spasms, hematuria. Patient denies severe flank pain, fever, chills. Objective Initial Vital Signs Temp Pulse Resp BP Pulse Ox 97.4 F L 90 17 124/79 96 04/24/18 00:11 04/24/18 00:11 04/24/18 00:11 04/24/18 00:11 04/24/18 00:11 - General physical appearance Present: well developed, no distress, no pain - Respiratory Present: normal expansion, normal respiratory effort - Abdomen Present: soft, non tender - Integumentary Present: no rash, no abnormal pigmentation - Musculoskeletal Present: normal posture - Psychiatric Present: oriented to time, oriented to person, oriented to place, speech is normal, memory intact - Labs 04/25/18 05:19 04/25/18 05:19 Diabetes panel 04/25/18 Range/Units 05:19 Sodium 140 (136-145) mEq/L Potassium 3.7 (3.5-5.1) mEq/L Chloride 111 H (98-107) mEq/L Carbon Dioxide 23 (23-29) mEq/L BUN 18 (8-23) mg/dL Creatinine 0.60 (0.60-1.20) mg/dL Glucose 207 H (70-105) mg/dL Calcium 9.1 (8.6-10.3) mg/dL Calcium panel 04/25/18 Range/Units 05:19 Calcium 9.1 (8.6-10.3) mg/dL Pituitary panel 04/25/18 Range/Units 05:19 Sodium 140 (136-145) mEq/L Potassium 3.7 (3.5-5.1) mEq/L Chloride 111 H (98-107) mEq/L Carbon Dioxide 23 (23-29) mEq/L BUN 18 (8-23) mg/dL Creatinine 0.60 (0.60-1.20) mg/dL Glucose 207 H (70-105) mg/dL Calcium 9.1 (8.6-10.3) mg/dL Adrenal panel 04/25/18 Range/Units 05:19 Sodium 140 (136-145) mEq/L Potassium 3.7 (3.5-5.1) mEq/L Chloride 111 H (98-107) mEq/L Carbon Dioxide 23 (23-29) mEq/L BUN 18 (8-23) mg/dL Creatinine 0.60 (0.60-1.20) mg/dL Glucose 207 H (70-105) mg/dL Calcium 9.1 (8.6-10.3) mg/dL Consult Discharge Plan - Plan Referrals: Bebo Aquino DO [Primary Care Provider] -
[2018-04-25] MEDS: cloNIDine HCl 0.1 MG TABLET PO SCH (20:11)
[2018-04-25] MEDS: OXYCODONE Oral CONC 10 MG/0.5 ML ORAL.SYG SL PRN (20:12)
[2018-04-26] MEDS: *HR* Heparin 5,000 UNIT/ML VIAL SQ SCH ×2 (00:42→08:16)
[2018-04-26] MEDS: OXYCODONE Oral CONC 10 MG/0.5 ML ORAL.SYG SL PRN ×2 (00:48→05:12)
[2018-04-26] MEDS: 0.9 % Sodium Chloride 1,000 ML IVC SCH ×2 (02:55→06:18)
[2018-04-26] MEDS: cloNIDine HCl 0.1 MG TABLET PO SCH (05:05)
[2018-04-26] MEDS ORDERED: 0.9 % Sodium Chloride 1,000 ML IVC SCH (05:15)
[2018-04-26 06:48] LABS: Basophils # 0.1 K/mcL (0.0-0.2); Basophils % 0.6 %; Eosinophils # 0.1 K/mcL (0.0-0.6); Eosinophils % 0.8 %; Hematocrit 33.3 % (35.3-44.9); Hemoglobin 11.4 g/dL (11.5-15.4); Immature Granulocytes % 0.6 % (0-4); Lymphocytes # 1.3 K/mcL (0.6-4.6); Mean Corpuscular HGB Conc 34.2 g/dL (31.6-35.5); Mean Corpuscular Hemoglobin 29.8 pg (28.0-33.3); Mean Corpuscular Volume 87.2 fL (83.0-100.0); Mean Platelet Volume 10.8 fL (9.4-12.4); Monocytes # 0.7 K/mcL (0.0-1.3); Monocytes % 8.6 %; Neutrophils # 5.6 K/mcL (1.6-8.9); Platelet Count 211 K/mcL (140-400); Red Blood Count 3.82 M/mcL (3.82-4.97); Red Cell Distribution Width 12.7 % (11.5-14.5); Segmented Neutrophils % 72.4 %
[2018-04-26 06:57] LABS: BUN/Creatinine Ratio 19 (6-26); Blood Urea Nitrogen 10 mg/dL (8-23); Calcium 8.4 mg/dL (8.6-10.3); Carbon Dioxide 24 mEq/L (23-29); Chloride 105 mEq/L (98-107); Glucose 173 mg/dL (70-105); Osmolality,Calculated 289 (280-300); Potassium 3.1 mEq/L (3.5-5.1); Sodium 138 mEq/L (136-145); eGFR For Non-African Americans > 60 (> 60)
--- NOTE | 2018-04-26 07:39 | Internal Med Progress Note ---
Hospitalist Progress Note - Encounter Date of Encounter: 04/26/18 Time of Encounter: 09:00 - Subjective Interval History: Ms. Gardner is a 67 year old female medical history of diabetes, hypertension, history of cervical cancer status post hysterectomy and hyperlipidemia who initially presented to [facility] to abdominal pain. She has been having right lower quadrant pain for the past 2 days. Symptoms gotten progressively worse during that timeframe associated with fever and chills. Patient has noted increased urinary frequency and urine which appears "puslike". At [facility] Pateint was suspected to be septic and started on IV ceftriaxone. A CT scan of the abdomen showed a 2-5 mm calculi in the right ureter causing moderate hydronephrosis. She was transferred here where Dr. Maya of Urology was consulted and placed a right ureteral stent (04/24/18). Ceftriaxone is being continued for possible sepsis, blood cultures pending. Over night patient patient became hypertensive at a peak of 179/102 with an associated headache. Pt restarted on her home medication clonidine at 0.1 mg PO BID (home dose 0.3 mg BID), fluids halved from 150ml/hr to 75ml/hr. Patient says that her right sided abdominal/flank pain worsened overnight and was given oxycodone 10mg. Pt reports urinating multiple times throughout the night and believes that her dysuria and hematuria are improving. Today patients BP down to 152/87. Her GARCIA from last night is still present but is improving. Flank pain is also improved. Denies fever/chills, visual/auditory changes. - Exam Vitals: Temp Pulse Resp BP Pulse Ox 97.6 F 82 16 152/87 93 04/26/18 04:23 04/26/18 04:23 04/26/18 04:23 04/26/18 05:54 04/26/18 04:23 Exam: General: Alert and oriented 3, lying in bed in mild discomfort Skin: Normal color, no rash, no lesions. Intact HEENT: normocephalic atraumatic, moist mucus membranes Cardiovascular:Normal S1 & S2, no rubs, murmurs or gallops. No JVD. Pulse regular. Lungs: Normal breath sounds, no wheezes, rhonchi, or crackles. Abdomen:Soft, non-tender, no rigidity, BS x4. No CVA tenderness, no rebound or guarding, obese. Denies BM during her stay Extremities: No deformity, no edema or tenderness, no joint swelling or clubbing, peripheral pulses equal bilaterally. Neurological:No FND, CN2-12 grossly intact Psych : appropriate mood and affect - Assessment and Plan (1) Nephrolithiasis Current Visit: Yes Status: Acute Assessment and Plan: Three day hx of abd pain, RLQ/side, radiation to the back - no prior hx of kidney stone CT abdomen and pelvis at [facility] - 2-5mm calculi in the right ureter causing moderate hydronephrosis Pt s/p cystoscopy and right ureteral stent placement with Dr. Maya (04/24) Plan: - discontinue 75cc/hr D5 in 1/2 normal saline -Pain control PRN -Continue to monitor for passage of stone - Consider discharge with out patient follow up per urology following blood culture results -urology suggests 7-10 days of oral antibiotic post discharge (2) Sepsis Current Visit: Yes Status: Resolved Assessment and Plan: Pt met SIRS criteria for fever, WBC count and tacycardia at [facility] - since coming to [facility], pt has been afebrile and hemodynamically stable HR 94, BP stable, RR 15, WBC count normal Patient on day 3 ceftriaxone Urine culture Collected 04/24 From transferring hospital -Final report: gram - evans sensitive to ciprofloxacin. -swith to PO Ciprofloxacin BID upon discharge Blood cultures collected 04/24 -pending Plan: -continue ceftiaxone (Day 3) -Consider discharge with out patient urology follow up pending blood cultures -Urology suggests 7-10 day course of oral antibiotics post discharge (3) Hypertension Current Visit: No Status: Chronic Assessment and Plan: Pt spiked BP of 179/102 last night, started on clonidine, and fluids halved. On bisoprolol/HCTZ (03/05.) 1 PO QD, Clonidine 0.1mg PO BID -Pt already given first dose of clonidine today....give clonidine .2mg PO BID for second dose today -BP 152/87 -Continue to monitor -Pt is on bisoprolol/HCTZ, clonidine, and losartan at home, consider switching over to home medications (4) Hypokalemia Current Visit: Yes Status: Acute Assessment and Plan: Potassium down to 3.1 -Give KCL 40 PO once -Continue to monitor (5) Diabetes Current Visit: No Status: Chronic Assessment and Plan: Glucose 173 -Give Levemir 5 Units once -on Mod dose sliding scale (6) Constipation Current Visit: Yes Status: Acute Assessment and Plan: -Patient admits to chronic constipation -Start Senna 2 each PO BID (7) GERD (gastroesophageal reflux disease) Current Visit: No Status: Chronic Assessment and Plan: On Omeprazole -Hx of hiatal hernia -controlled (8) DVT prophylaxis Current Visit: Yes Status: Acute Assessment and Plan: On SQ heparin - Time Spent with Patient Total time spent is greater than 50% in coordination of care (as documented) at patient's floor/unit and/or counseling patient: less than 15 minutes Plan of Care Discussed with: patient Internal Medicine: Result - Labs CBC & Chem 7: 04/26/18 06:15 04/26/18 06:15 Labs: Short CBC 04/26/18 Range/Units 06:15 WBC 7.8 (4.3-11.1) K/mcL Hgb 11.4 L (11.5-15.4) g/dL Hct 33.3 L (35.3-44.9) % Plt Count 211 (140-400) K/mcL Neutrophils # 5.6 (1.6-8.9) K/mcL BMP 04/26/18 06:15 Sodium 138 Potassium 3.1 L Chloride 105 Carbon Dioxide 24 BUN 10 Creatinine 0.54 L Glucose 173 H Calcium 8.4 L - ABG Interpretation ABG results: PT/INR, D-dimer PT 13.2 Seconds (9.4-12.1) H 04/24/18 00:39 Consult Discharge Plan - Plan Instructions: Ciprofloxacin (By mouth), Laxative, Stimulant (By mouth), Kidney Stones (DC), Hypokalemia (DC) Referrals: Arnulfo Maya MD [Partnered Physician] - 05/05/18 1:45 pm Prescriptions: Ciprofloxacin [Cipro] 500 mg PO BID 7 Days #14 tablet Phenazopyridine [Pyridium] 100 mg PO TID PRN #20 tablet PRN Reason: Bladder spasm Sennosides/Docusate Sodium [Senna Plus] 2 each PO BID 30 Days #60 tablet (2) Sepsis Qualifiers: Qualified Code(s): A41.9 - Sepsis, unspecified organism (3) Hypertension Qualifiers: Hypertension type: unspecified Qualified Code(s): I10 - Essential (primary) hypertension (5) Diabetes Qualifiers: Diabetes mellitus type: type 2 Diabetes mellitus geriatric assistant insulin use: without geriatric assistant use Diabetes mellitus complication status: with unspecified complications Qualified Code(s): E11.8 - Type 2 diabetes mellitus with unspecified complications (7) GERD (gastroesophageal reflux disease) Qualifiers: Esophagitis presence: esophagitis presence not specified Qualified Code(s): K21.9 - Gastro-esophageal reflux disease without esophagitis
[2018-04-26] MEDS: cefTRIAXone 1,000 MG in Water for inj. (sterile) 20 ML 10 ML IVPB SCH (08:08)
[2018-04-26] MEDS: Bisoprolol/HCTZ 10/6.25 TABLET PO SCH (08:16)
--- NOTE | 2018-04-26 08:16 | Urology Progress Note ---
Addendum entered and electronically signed by Arnulfo Maya MD 04/26/18 16:14: The patient was seen and examined with the physician's pharmacy technician assistant. I agree with the assessment and plan. We will arrange for outpatient ureteroscopy. Original Note: Date of Encounter: 04/26/18 Time of Encounter: 07:50 - Assessment and Plan (1) Nephrolithiasis Current Visit: Yes Status: Acute Assessment and plan: Patient is a 67-year-old female who presents 2 days postoperatively from a cystoscopy and right ureteral stent placement. Patient is feeling much better and has remained afebrile. Discussed the need for culture results from [facility]; intraoperative renal aspirate culture is negative. Patient has been placed on Rocephin with much improvement. Urology recommendations 7-10 days of oral antibiotics after discharge. Patient is aware she will need to follow-up within 2 weeks of discharge to plan definitive stone extraction procedure. (2) Sepsis Current Visit: Yes Status: Resolved Qualifiers: Qualified Code(s): A41.9 - Sepsis, unspecified organism Progress Note Narrative: POD #2. Patient seen and examined lying in bed in apparent distress. Patient reports taking voiding symptoms are improved. Patient is tolerating normal diet without nausea or vomiting. Patient is voiding without difficulty. Patient does complain of a frontal headache secondary to high blood pressure. Patient denies fever, chills, chest pain, dyspnea, calf pain, flank pain. Objective Initial Vital Signs Temp Pulse Resp BP Pulse Ox 97.4 F L 90 17 124/79 96 04/24/18 00:11 04/24/18 00:11 04/24/18 00:11 04/24/18 00:11 04/24/18 00:11 - General physical appearance Present: well developed, no distress, no pain - Respiratory Present: normal expansion, normal respiratory effort - Abdomen Present: soft, non tender - Integumentary Present: no rash, no abnormal pigmentation - Psychiatric Present: oriented to time, oriented to person, oriented to place, speech is n ormal, memory intact - Labs 04/26/18 06:15 04/26/18 06:15 Diabetes panel 04/26/18 Range/Units 06:15 Sodium 138 (136-145) mEq/L Potassium 3.1 L (3.5-5.1) mEq/L Chloride 105 (98-107) mEq/L Carbon Dioxide 24 (23-29) mEq/L BUN 10 (8-23) mg/dL Creatinine 0.54 L (0.60-1.20) mg/dL Glucose 173 H (70-105) mg/dL Calcium 8.4 L (8.6-10.3) mg/dL Calcium panel 04/26/18 Range/Units 06:15 Calcium 8.4 L (8.6-10.3) mg/dL Pituitary panel 04/26/18 Range/Units 06:15 Sodium 138 (136-145) mEq/L Potassium 3.1 L (3.5-5.1) mEq/L Chloride 105 (98-107) mEq/L Carbon Dioxide 24 (23-29) mEq/L BUN 10 (8-23) mg/dL Creatinine 0.54 L (0.60-1.20) mg/dL Glucose 173 H (70-105) mg/dL Calcium 8.4 L (8.6-10.3) mg/dL Adrenal panel 04/26/18 Range/Units 06:15 Sodium 138 (136-145) mEq/L Potassium 3.1 L (3.5-5.1) mEq/L Chloride 105 (98-107) mEq/L Carbon Dioxide 24 (23-29) mEq/L BUN 10 (8-23) mg/dL Creatinine 0.54 L (0.60-1.20) mg/dL Glucose 173 H (70-105) mg/dL Calcium 8.4 L (8.6-10.3) mg/dL Consult Discharge Plan - Plan Referrals: Bebo Aquino DO [Primary Care Provider] -
[2018-04-26] MEDS: Insulin LISPRO 300 UNITS/3 ML VIAL SQ SCH ×2 (08:23→11:27)
[2018-04-26] MEDS ORDERED: cloNIDine HCl 0.1 MG TABLET PO ONE (09:26)
[2018-04-26] MEDS ORDERED: Insulin DETEMIR 100 UNIT/ML X5UNITS SQ ONE (09:30)
[2018-04-26] MEDS ORDERED: Sennosides/Docusate Sodium TABLET PO SCH (09:30)
--- NOTE | 2018-04-26 09:31 | Discharge Summary ---
<Lex Lino - Last Filed: 04/26/18 13:17> Orders not resulted at time of discharge: Pending orders 04/24/18 XR KUB [XR] Routine 04/24/18 05:02 Culture,Blood [BC] AM 0400 Date of Encounter: 04/26/18 Time of Encounter: 09:15 - Discharge Diagnosis (1) Nephrolithiasis Status: Acute (2) Sepsis Status: Resolved Qualifiers: Qualified Code(s): A41.9 - Sepsis, unspecified organism (3) Diabetes Status: Chronic Qualifiers: Diabetes mellitus type: type 2 Diabetes mellitus computerized table cutter insulin use: without computerized table cutter use Diabetes mellitus complication status: with unspecified complications Qualified Code(s): E11.8 - Type 2 diabetes mellitus with unspecified complications (4) Hypertension Status: Chronic Qualifiers: Hypertension type: unspecified Qualified Code(s): I10 - Essential (primary) hypertension (5) DVT prophylaxis Status: Acute Hospital course: Ms. Gardner is a 67 year old female Discharge discussed with: patient - Time Spent with Patient Total time spent providing and/or coordinating discharge services: Less than 30 minutes (10 min) - Discharge Medications Prescriptions: Ciprofloxacin [Cipro] 500 mg PO BID 7 Days #14 tablet Phenazopyridine [Pyridium] 100 mg PO TID PRN #20 tablet PRN Reason: Bladder spasm Sennosides/Docusate Sodium [Senna Plus] 2 each PO BID 30 Days #60 tablet Home Medications: Aspirin [Adult Aspirin] 81 mg PO DAILY 04/24/18 [History] Bisoprolol/HCTZ 10/6.25 [Ziac 10/6.25] 1 each PO DAILY 04/24/18 [History] Fluticasone Propionate Nasal [Flonase] 1 spray NS DAILY PRN 04/24/18 [History] Krill/[place]-3/Dha/Epa/Lipids [[place]-3 Krill Oil 500 mg Sfgl] 1 cap PO DAILY 04/24/18 [History] Losartan [Cozaar] 100 mg PO DAILY 04/24/18 [History] Mv-Mn/Folic Acid/Vit K/Ybbv338 [Alive Once Daily Women 50 Plus] 1 tab PO DAILY 04/24/18 [History] Pantoprazole Sodium 40 mg PO DAILY 04/24/18 [History] Pravastatin Sodium [Pravachol] 80 mg PO DAILY 04/24/18 [History] cloNIDine HCl [CloNIDine HCl] 0.3 mg PO BID 04/24/18 [History] metFORMIN [Glucophage] 850 mg PO DAILY 04/24/18 [History] Ciprofloxacin [Cipro] 500 mg PO BID 7 Days #14 tablet 04/26/18 [Rx] Phenazopyridine [Pyridium] 100 mg PO TID PRN #20 tablet 04/26/18 [Rx] Sennosides/Docusate Sodium [Senna Plus] 2 each PO BID 30 Days #60 tablet 04/26/18 [Rx] Allergies/Adverse Reactions: Allergy/AdvReac Type Severity Reaction Status Date / Time No Known Allergies Allergy Verified 04/24/18 00:16 Date of admission: 04/24/18 00:21 Primary care physician: Bebo Aquino DO Consults: 04/24/18 00:23 Consult to Urology [CONS] Routine Consulting Provider: Urology Mary Reason for Consult: Nephrolithiasis Call Completed: No - Constitutional Vitals: Temp Pulse Resp BP Pulse Ox 97.5 F L 76 16 137/84 94 04/26/18 11:12 04/26/18 11:12 04/26/18 11:12 04/26/18 11:12 04/26/18 11:12 General appearance: Present: cooperative, A&O X 3, pleasant, answers questions appropriately - Respiratory Respiratory exam: Present: CTAB. Absent: accessory muscle use, rales, rhonchi, wheezes - Cardiovascular Cardiovascular exam: Present: RRR, +S1, +S2. Absent: diastolic murmur, gallop, rubs, systolic murmur - GI/Abdominal GI/Abdominal exam: Present: normal bowel sounds, soft, no peritoneal signs. Absent: distended, tenderness - Patient Status Disposition: Home, Self-Care Condition: Good - Discharge Instructions Instructions: Ciprofloxacin (By mouth), Laxative, Stimulant (By mouth), Kidney Stones (DC), Hypokalemia (DC) Follow Up With: Arnulfo Maya MD [Partnered Physician] - 05/05/18 1:45 pm - Attending Attestation I saw evaluated and examined this patient and my medical decision-making was reviewed with the Resident Physician, Pedro Murray. I agree with the documented findings, disposition and treatment plan as described except to any changes set forth below. We independently had [id number] contact with the patient. Patient was hospitalized here after presenting at an outside ED for abdominal pain. She was diagnosed with acute sepsis related to urinary tract infection and right-sided ureteral stone with hydronephrosis. She was treated with IV and and urology was consulted. Patient underwent cystoscopy and right-sided ureteral stent placement. Since then she has started to feel better his not had any more fevers over the past 24 hours. She is clinically stable to be discharged home. Initial set of urine cultures were positive for Enterobacter aerogenesis. Repeat cultures done here have been negative. She will be dischar ge on oral antibiotics and will follow up with urology after discharge. <Pedro Murray - Last Filed: 04/26/18 15:01> Orders not resulted at time of discharge: Pending orders 04/24/18 XR KUB [XR] Routine 04/24/18 05:02 Culture,Blood [BC] AM 0400 Date of Encounter: 04/26/18 Time of Encounter: 09:30 - Discharge Diagnosis (1) Nephrolithiasis Priority: Primary Status: Acute (2) Sepsis Priority: Primary Status: Resolved Qualifiers: Qualified Code(s): A41.9 - Sepsis, unspecified organism (3) Diabetes Priority: Secondary Status: Chronic Qualifiers: Diabetes mellitus type: type 2 Diabetes mellitus shelter insulin use: without computerized table cutter use Diabetes mellitus complication status: with unspecified complications Qualified Code(s): E11.8 - Type 2 diabetes mellitus with unspecified complications (4) Hypertension Priority: Secondary Status: Chronic Qualifiers: Hypertension type: unspecified Qualified Code(s): I10 - Essential (primary) hypertension (5) DVT prophylaxis Priority: Secondary Status: Acute Hospital course: Ms. Gardner is a 67 year old female past history of diabetes, hypertension, histo ry of cervical cancer post hysterectomy and hyperlipidemia was seen at [facility] with abdominal pain. She was found to be tachycardic, febrile with temperature 102.5 and IVC count of 12.8 with a lactic acid 1.9. CT scan of the abdomen was concerning with a obstructing right ureter stone with moderate hydronephrosis. She was transferred to [facility] and underwent urologic evaluation and stent placement per urology team. Sepsis workup was completed, urine culture, blood cultures at our facility were negative. Urine culture from [facility] came back positive for gram-negative rods sensitive to Levaquin. Patient continued to demonstrate improvement. Hemoglobin remained stable. Potassium was slightly low around 3.1 post diuresis. She received by mouth potassium chloride, continued on IV antibiotics and switched to by mouth ciprofloxacin for a total of 7 days, Pyridium for bladder spasms. She was discharged home with close follow-up with urology and her primary care provider. Discharge discussed with: patient - Time Spent with Patient Total time spent providing and/or coordinating discharge services: Less than 30 minutes Date of admission: 04/24/18 00:21 Primary care physician: Bebo Aquino, DO Consults: 04/24/18 00:23 Consult to Urology [CONS] Routine Consulting Provider: Urology Mary Reason for Consult: Nephrolithiasis Call Completed: No Discharging clinician: Pedro Murray Anticipated date of discharge: 04/26/18 - Constitutional Vitals: Temp Pulse Resp BP Pulse Ox 97.6 F 82 16 152/87 93 04/26/18 07:21 04/26/18 07:21 04/26/18 07:21 04/26/18 07:21 04/26/18 07:21 Exam: Alert awake interactive no acute distress sitting up in bed eating breakfast HEENT normocephalic/atraumatic, pupils equal reactive nasal cavity. No pain, oral mucosa moist Cardiac regular rate and rhythm positive S1-S2, radial pulses 2+ bilateral Respiratory clear to auscultation bilateral Abdomen soft nontender palpation, positive bowel sounds Extremities: Patient will 4 extremities spontaneously - Patient Status Functional capacity at discharge: independent ambulation Overall status at discharge: patient is progressing back to baseline - Diet and Activity Activity: increase activity as tolerated Diet: diabetic diet
[2018-04-26 11:18] VITALS: BP 137/84
== END 2018-04-26 15:52 | disposition home or self-care (01) | DRG 854 ==
LOC: 3ANU → SUATTDRO 04-24 00:21
PROVIDERS: ADMIT Internal Medicine; ATTEND Internal Medicine